=== PATIENT | male | born 1985 | race Caucasian/White ===

== ENCOUNTER 2020-07-01 01:25 | Outpatient (CLI) | payer OTHER, SELFPAY ==
[2020-07-01 22:35] LABS: SARS-CoV-2 RNA PCR Negative
== END 2020-07-01 01:26 | disposition home or self-care (01) ==
LOC: ANHCOVIDDT 01:26
PROVIDERS: PCP Family Medicine; Visit Provider Internal Medicine Critical Care Medicine
DX: Z01.812 Encounter for preprocedural laboratory examination (principal); Z20.828 Contact with and (suspected) exposure to other viral communicable diseases
CPT/HCPCS: 87635; C9803; U0003

== ENCOUNTER 2020-07-03 11:17 | Outpatient (CLI) | payer OTHER, SELFPAY ==
--- NOTE | 2020-08-15 18:40 | WPDSLEEPSTUD ---
Sleep Study Date of Study: 07/03/20 Ordering Provider: Kanwal Mcclure MD Interpreting Physician: Kanwal Mcclure MD Sleep Study Type: Polysomnogram Height: 1.52 m Weight: 78.925 kg Body Mass Index: 34.0 Neck Circumference: 36.83 cm [place]: 10 Reason for Sleep Study Non-refreshing sleep, wakes up feeling tired, occasionally sleep walks and sleep talks Sleep History Roly Schuler is a 35 year-old man who constantly snores, and frequently it is loud enough that others complain about it. He does not awaken at night with heartburn symptoms. Does not awaken at night feeling short of breath. He frequently has trouble sleeping with a cold. He does not wake up gasping for breath at night and others do not tell him that he has breathing problems at night. He does not sweat excessively at night. He rarely notices his heart pounding or racing at night. He occasionally falls asleep during the day, rarely involuntarily and rarely while driving. He does not fall asleep while exerting physical effort. He does not have loss of muscle tone with strong emotion. He rarely has daytime difficulties due to excessive sleepiness, currently works as a inside sales account manager. He frequently has vivid dreamlike scenes upon awakening or falling asleep. He does not have nightmares. He frequently remembers his dreams. He frequently has racing thoughts. He occasionally feels sad or depressed. He rarely feels anxious. Does not have muscular tension. He does not notice parts of his body jerking. He occasionally kicks at night, rarely has crawling or aching feelings in his legs at night. He does not have leg pain during the night. He denies morning jaw pain and does not grind his teeth at night. He is not bothered by pain during the day or awakened with pain at night. He rarely wakes up with sore achy muscles. He occasionally wakes up with pain in the spine. He has memory problems, sexual problems, and occasionally has morning headaches. On occasion he wakes up feeling refreshed, usually is tired. Normal bedtime is 11:00 p.m. falling asleep within 10 minutes, waking occasionally at night. When he wakes, at night he goes to urinate, often thinks to himself about various things while he tries to go to sleep. He wakes the morning at 6:00 a.m.. Weekend schedule is the same, going to sleep between 11:00 p.m. or as late as midnight. He wakes at the same time 6:00 a.m. He estimates between 6 and 7 hours of sleep at night. He does not take naps. A short nap is not refreshing. He feels better in the evening compared to other times of day. Habits: Never smoked tobacco. Caffeine 6 sodas and 1 coffee daily. Alcohol half drink per day. No recreational drugs. [facility] Past Medical History Medical History (Updated 08/15/20 @ 19:07 by Kanwal Mcclure MD) Epilepsy Sleep walking Family History Family History (Updated 04/24/14 @ 07:13 by DOCTOR UNKNOWN) Sibling Family history of epilepsy Family history of seizure disorder Social History Social History (Updated 09/06/19 @ 07:59 by Erlinda Burton) Smoking status: Never smoker Second hand tobacco smoke exposure: No Alcohol intake: current Drinks per week: 3 Substance use: never Substance use type: does not use Gender identity (if verbalized by the patient): Male Medications Home Medications Medication Instructions Recorded Confirmed Type carbamazepine 200 mg 200 mg PO Q12H 09/06/19 01/21/20 History capsule,extended release [id number] levetiracetam 750 mg tablet 1,000 mg PO Q12H tablet 01/21/20 01/21/20 History Sleep Procedure This test was performed using the [employer] multiple channel system including EOG, EEG, submental EMG, EKG, nasal and oral airflow using thermistors and nasal pressure sensors, chest and abdominal belts for body position data, and pulse oximetry. Video monitoring was also performed. The study was scored using [facility] guidelines. Sleep Architecture The duration of
[2020-08-15 18:56] VITALS: BMI 34.0
== END 2020-07-03 11:18 | disposition home or self-care (01) ==
LOC: ANHCSM 11:17
PROVIDERS: PCP Family Medicine; Visit Provider Internal Medicine Critical Care Medicine
DX: G47.10 Hypersomnia, unspecified (principal); R06.83 Snoring; R25.8 Other abnormal involuntary movements
CPT/HCPCS: 95810

== ENCOUNTER 2020-08-10 10:36 | Outpatient (NON) | payer OTHER, SELFPAY ==
[2020-08-10 23:01] LABS: SARS-CoV-2 RNA PCR Negative
== END 2020-08-10 10:37 ==
LOC: ANHCOVIDDT 10:38
PROVIDERS: PCP Family Medicine; Visit Provider Physician Assistant
DX: Z20.828 Contact with and (suspected) exposure to other viral communicable diseases (principal); R06.02 Shortness of breath
CPT/HCPCS: 87635; C9803; U0003